=== PATIENT | male | born 1930 | race Caucasian/White ===

== ENCOUNTER 2017-01-04 21:52 | Inpatient (IN) | payer MEDICARE, BC ==
[~2017-01-04 21:52] MED LIST: ADULT ASPIRIN81 MG PO; ADULT LOW DOSE81 MG PO; ALPRAZOLAM0.25 MG; AUGMENTIN875 MG PO; BL MAXEPA CAPSU1 CAP PO; DIABETA1.25 MG PO; DORYX100 MG PO; FISH OIL 1,0001 CA1 PO; GLUCOPHAGE500 M3 PO; GLUCOPHAGE500 MG; GLYBURIDE1.25 MG; GLYBURIDE1.25 MG PO; INDERAL20 MG; INDERAL20 MG PO; LISINOPRIL10 MG; MYSOLINE50 M3 PO; NITROGLYCERIN0.4 MG SL; OXYCODONE/APAP PO; PRIMIDONE50 MG; TERAZOSIN HCL10 M1 PO; TERAZOSIN5 MG PO; XANAX0.25 M1 PO; ZESTRIL20 MG PO; ZOCOR40 MG; ZOCOR40 MG PO; [UNRECOGNIZED DRUG - REMARK]
[2017-01-04 22:26] LABS: BASO % 0.1 % (0-2); EOS % 0.3 % (0-7); HCT-HEMATOCRIT 37.5 % (36.0-53.5); HGB-HEMOGLOBIN 13.2 gm/dl (13.5-17.0); IMMATURE GRANULOCYTES ABSOLUTE 0.03 tho/cmm (0-0.03); IMMATURE GRANULOCYTES PERCENT 0.3 % (0-0.3); LYMPH % 13.3 % (20-45); LYMPH ABSOLUTE COUNT 1.5 tho/cmm (0.8-4.5); MCH (MEAN CORPUSCULAR HGB) 32.4 pg (28.0-32.0); MCHC MEAN CORPUSCULAR HGB CONC 35.2 % (32.0-36.0); MCV (MEAN CELL VOLUME) 92.1 fl (82.0-96.0); MEAN PLATELET VOLUME 9.2 cmc (9.4-12.4); MONO % 9.1 % (0-12); NEUTROPHIL ABSOLUTE COUNT 8.5 tho/cmm (1.6-8.0); NEUTROPHIL-AUTOMATED 8.5 tho/cmm (1.6-8.0); NEUTROPHILS % 76.9 % (40-80); PLATELET COUNT 148 tho/cmm (150-450); RED BLOOD COUNT 4.07 mil/cmm (4.40-5.70)
[2017-01-04 22:38] LABS: URINE LEUKOCYTE ESTERASE NEGATIVE (NEG); URINE PROTEIN LARGE (NEG); URINE SPECIFIC GRAVITY 1.015 (1.003-1.030)
[2017-01-04 22:39] LABS: URINE APPEARANCE HAZY; URINE BILIRUBIN NEGATIVE (NEG); URINE BLOOD LARGE (NEG); URINE COLOR YELLOW; URINE GLUCOSE (UA) LARGE (NEG); URINE KETONE NEGATIVE (NEG); URINE NITRITE NEGATIVE (NEG)
[2017-01-04 22:44] LABS: ALB/GLOB RATIO 0.7 (0.8-2.0); ALBUMIN 3.2 g/dl (3.5-5.0); ALKALINE PHOSPHATASE 108 U/L (33-138); ALT/SGPT 17 U/L (12-78); ANION GAP 14 mmol/L (0-20); AST/SGOT 14 U/L (10-40); BILIRUBIN,TOTAL 0.5 mg/dl (0.0-1.5); BLOOD UREA NITROGEN 17 mg/dl (6-24); CALCIUM 8.4 mg/dl (8.5-10.5); CARBON DIOXIDE-VENOUS 25 mmol/L (22-32); CHLORIDE 101 mmol/l (96-110); CREATININE 1.14 mg/dl (0.60-1.30); GLUCOSE 220 mg/dL (70-110); POTASSIUM 4.2 mmol/L (3.7-5.1); SODIUM 136 mmol/L (135-145); eGFR VALUE FOR BLACK 66 mL/Min
[2017-01-04 22:48] LABS: URINE EPITHELIAL CELLS 0 /[HPF] (0-10); URINE WBC 0 /[HPF] (0-5)
[2017-01-04 22:58] LABS: PROCALCITONIN <0.05 ng/ml (0.05-0.09)
[2017-01-04] MEDS ORDERED: LIPITOR40 M1 PO (23:24)
[2017-01-04] MEDS ORDERED: COZAAR100 M1 PO (23:25)
[2017-01-04] MEDS ORDERED: GLUCOTROL5 M1 PO (23:25)
[2017-01-04] MEDS ORDERED: AMLODIPINE BESYL5 MG PO (23:26)
[2017-01-05 02:22] LABS: BASO % 0.2 % (0-2); EOS % 0.6 % (0-7); EOSINOPHIL ABSOLUTE COUNT 0.1 tho/cmm (0.0-0.7); HCT-HEMATOCRIT 33.8 % (36.0-53.5); HGB-HEMOGLOBIN 11.8 gm/dl (13.5-17.0); IMMATURE GRANULOCYTES ABSOLUTE 0.02 tho/cmm (0-0.03); IMMATURE GRANULOCYTES PERCENT 0.2 % (0-0.3); LYMPH ABSOLUTE COUNT 1.2 tho/cmm (0.8-4.5); MCH (MEAN CORPUSCULAR HGB) 31.9 pg (28.0-32.0); MCHC MEAN CORPUSCULAR HGB CONC 34.9 % (32.0-36.0); MCV (MEAN CELL VOLUME) 91.4 fl (82.0-96.0); MEAN PLATELET VOLUME 9.2 cmc (9.4-12.4); MONO % 12.1 % (0-12); MONOCYTE ABSOLUTE COUNT 1.3 tho/cmm (0.0-1.2); NEUTROPHIL ABSOLUTE COUNT 7.8 tho/cmm (1.6-8.0); NEUTROPHIL-AUTOMATED 7.8 tho/cmm (1.6-8.0); NEUTROPHILS % 74.9 % (40-80); PLATELET COUNT 138 tho/cmm (150-450); WHITE BLOOD COUNT 10.4 tho/cmm (4.0-10.0)
[2017-01-05 02:31] LABS: ANION GAP 13 mmol/L (0-20); BLOOD UREA NITROGEN 16 mg/dl (6-24); C-REACTIVE PROTEIN 6.8 mg/dl (0-0.9); CALCIUM 7.6 mg/dl (8.5-10.5); CARBON DIOXIDE-VENOUS 24 mmol/L (22-32); CHLORIDE 105 mmol/l (96-110); CREATININE 0.86 mg/dl (0.60-1.30); GLUCOSE 172 mg/dL (70-110); POTASSIUM 3.6 mmol/L (3.7-5.1); SODIUM 138 mmol/L (135-145); eGFR VALUE FOR BLACK 90 mL/Min
[2017-01-06 05:25] LABS: BASO % 0.1 % (0-2); EOS % 0.3 % (0-7); HCT-HEMATOCRIT 33.3 % (36.0-53.5); HGB-HEMOGLOBIN 11.4 gm/dl (13.5-17.0); IMMATURE GRANULOCYTES ABSOLUTE 0.03 tho/cmm (0-0.03); IMMATURE GRANULOCYTES PERCENT 0.3 % (0-0.3); LYMPH % 9.6 % (20-45); LYMPH ABSOLUTE COUNT 1.1 tho/cmm (0.8-4.5); MCH (MEAN CORPUSCULAR HGB) 31.7 pg (28.0-32.0); MCHC MEAN CORPUSCULAR HGB CONC 34.2 % (32.0-36.0); MCV (MEAN CELL VOLUME) 92.5 fl (82.0-96.0); MEAN PLATELET VOLUME 9.4 cmc (9.4-12.4); MONO % 11.6 % (0-12); MONOCYTE ABSOLUTE COUNT 1.4 tho/cmm (0.0-1.2); NEUTROPHIL ABSOLUTE COUNT 9.3 tho/cmm (1.6-8.0); NEUTROPHIL-AUTOMATED 9.3 tho/cmm (1.6-8.0); NEUTROPHILS % 78.1 % (40-80); PLATELET COUNT 139 tho/cmm (150-450); RED CELL DISTRIBUTION WIDTH 13.2 % (12.4-16.4); WHITE BLOOD COUNT 11.8 tho/cmm (4.0-10.0)
[2017-01-06 05:41] LABS: ANION GAP 12 mmol/L (0-20); BLOOD UREA NITROGEN 15 mg/dl (6-24); CARBON DIOXIDE-VENOUS 24 mmol/L (22-32); CHLORIDE 108 mmol/l (96-110); CREATININE 0.78 mg/dl (0.60-1.30); GLUCOSE 152 mg/dL (70-110); POTASSIUM 4.1 mmol/L (3.7-5.1); SODIUM 140 mmol/L (135-145); eGFR VALUE FOR BLACK >90 mL/Min
[2017-01-06] MEDS ORDERED: COZAAR100 M1 PO (14:43)
[2017-01-06] MEDS ORDERED: LOPRESSOR50 M1 PO (14:43)
[2017-01-07] MEDS ORDERED: LEVAQUIN500 M1 PO (14:03)
[2017-01-07] MEDS ORDERED: FLOMAX0.4 M1 PO (14:04)
== END 2017-01-07 15:00 | disposition home health service (06) | DRG 725 ==
LOC: EDMED 21:52 → EMR2 23:48 → 5WD 01-05 01:09
PROVIDERS: Emergency Medicine; Internal Medicine Cardiovascular Disease; Registered Nurse; ADMIT Hospitalist
DX: N40.1 Benign prostatic hyperplasia with lower urinary tract symptoms (principal); J96.01 Acute respiratory failure with hypoxia; N13.8 Other obstructive and reflux uropathy; N30.90 Cystitis, unspecified without hematuria; E11.65 Type 2 diabetes mellitus with hyperglycemia; D69.6 Thrombocytopenia, unspecified; R33.8 Other retention of urine; N41.0 Acute prostatitis; I10 Essential (primary) hypertension; K59.00 Constipation, unspecified; D72.829 Elevated white blood cell count, unspecified; D64.9 Anemia, unspecified; I25.10 Atherosclerotic heart disease of native coronary artery without angina pectoris; G25.0 Essential tremor; Z95.1 Presence of aortocoronary bypass graft; Z87.891 Personal history of nicotine dependence; Z92.3 Personal history of irradiation; Z79.82 Long term (current) use of aspirin; Z79.84 Long term (current) use of oral hypoglycemic drugs; Z79.899 Other long term (current) drug therapy
CPT/HCPCS: J0360; J1815; J1956; J2543; J7030